=== PATIENT | male | born 1970 | race Caucasian/White ===

== ENCOUNTER → 2023-11-19 14:15 | Outpatient (REF) | payer OTHER, SELFPAY | LOC: HWRAD 14:15 | PROVIDERS: ATTENDING PHYSICIAN Specialist; FAMILY PHYSICIAN Physician Assistant | DX: I10 Essential (primary) hypertension (principal); N20.0 Calculus of kidney; N18.32 Chronic kidney disease, stage 3b; N26.1 Atrophy of kidney (terminal) | CPT/HCPCS: 74176 ==

== ENCOUNTER → 2024-01-04 11:36 | Outpatient (REF) | payer OTHER, SELFPAY | LOC: HWRAD 11:36 | PROVIDERS: ATTENDING PHYSICIAN Internal Medicine; FAMILY PHYSICIAN Physician Assistant | DX: R10.31 Right lower quadrant pain (principal); R14.0 Abdominal distension (gaseous) | CPT/HCPCS: 74019 ==

== ENCOUNTER 2024-02-07 08:50 | Emergency (ER) | payer OTHER, SELFPAY ==
[2024-02-07 08:57] VITALS: BP 129/85
--- NOTE | 2024-02-07 09:22 | ED.SKININJ ---
HPI-Injury
<Jonathan Helms PA-C - Last Filed: 02/07/24 09:25>
General
Chief Complaint: Skin Surface Trauma
Source: patient
Exam Limitations: none
Time Seen by Provider: 02/07/24 09:02
History of Present Illness-Injury
Initial Injury comments:
53-year-old [id number] male with laceration to left hand he sustained today. Was trying to cut a zip tie with a knife and slipped and cut himself in the hand. The cut is between the webspace between the thumb and index finger. He was
having difficulty getting it to stop bleeding at home. Last tetanus vaccine updated recently. No numbness or tingling or loss of function
Past History
<Jonathan Helms PA-C - Last Filed: 02/07/24 09:25>
Past History
ED Past Medical History: HTN and Other (CKD, kidney stones)
ED Past Surgical History: Urological
Social History
Tobacco: Non-smoker
Phy Exam
<Jonathan Helms PA-C - Last Filed: 02/07/24 09:25>
Physical Exam
Physical Exam:
General: Well-appearing male no acute respiratory distress
Skin: 2 cm laceration webspace between left thumb and index finger. Possible muscular involvement but no active bleeding. No tendon involvement.
Musculoskeletal exam: Full range of motion all fingers and thumb left hand
Neurologic exam: Good sensation left thumb and index finger
Vascular: Brisk cap refill all fingers
Course
<Jonathan Helms PA-C - Last Filed: 02/07/24 09:25>
Vital Signs
Initial and Last Documented VS:
Initial Vital Signs
Temp Pulse Resp BP Pulse Ox
98.1 F 82 16 129/85 97
02/07/24 08:57 02/07/24 08:57 02/07/24 08:57 02/07/24 08:57 02/07/24 08:57
Last Documented Vital Signs
Temp Pulse Resp BP Pulse Ox
98.1 F 82 16 129/85 97
02/07/24 08:57 02/07/24 08:57 02/07/24 08:57 02/07/24 08:57 02/07/24 08:57
<Gonzalo Abad DO - Last Filed: 02/07/24 10:22>
Vital Signs
Initial and Last Documented VS:
Initial Vital Signs
Temp Pulse Resp BP Pulse Ox
98.1 F 82 16 129/85 97
02/07/24 08:57 02/07/24 08:57 02/07/24 08:57 02/07/24 08:57 02/07/24 08:57
Last Documented Vital Signs
Temp Pulse Resp BP Pulse Ox
98.1 F 82 16 129/85 97
02/07/24 08:57 02/07/24 08:57 02/07/24 08:57 02/07/24 08:57 02/07/24 08:57
<Jonathan Helms PA-C - Last Filed: 02/07/24 09:25>
MDM/Problems Addressed
Differential Diagnosis Includes:
Laceration left hand. This was copiously irrigated with saline solution. No evidence of neurovascular or tendon involvement. Once irrigated, the wound was anesthetized in a local fashion using 1% lidocaine with epinephrine. 4-0 Prolene sutures
were used in a simple erupted fashion. 4 sutures were required to provide wound edge approximation and hemostasis. A dressing was applied. Stable for
<Jonathan Helms PA-C - Last Filed: 02/07/24 09:25>
*Critical Care Note
Total Time (30-74mins, 75-104mins- exclusive of procedures): Not Applicable
ED Attending Note
<KAYLA Cash Filed: 02/07/24 09:25>
-
Portions of this chart may have been created with voice recognition software.� Occasional wrong word or��sound alike� substitutions may have occurred due to the inherent limitations of voice recognition software.
<Gonzalo Abad DO - Last Filed: 02/07/24 10:22>
ED Attending Note
Patient seen and examined by attending physician: Yes
I performed the substantive portion of visit, reviewed & personally made and approve the management plan that is documented in note by myself or TALA.: Yes
ED Attending Note:
I have seen and evaluated the patient with a [id number] encounter. I have spoken to the advance practicer provider and involved in the medical history, the physical exam, medical decision making.
Evaluation and management service: agree unless noted differently below.
Results interpretation: agree unless noted differently below.
Focused HPI: 53-year-old male presenting with self sustained cut to his left hand. Patient was brought back immediately when triage indicated that the cut was hemorrhaging. Dressing applied
Physical exam: The hemorrhaging appeared to have resolved. There is a small 2 cm laceration to the webbing's left hand along the thumb and index finger. Patient in no acute distress
Medical Decision Making: Stitches placed. No active bleeding.
Discharge Plan
Departure
Patient Disposition: Home (Routine Discharge)
Date of Disposition: 02/07/24
Time of Disposition: :24
Patient with high blood pressure during this ER visit?: No
Discharge Problem:
Laceration
Instructions: Laceration Repair With Stitches (DC)
Prescriptions:
No Action
amlodipine 5 MG tablet
5 mg PO HS
allopurinol 300 MG tablet
150 mg PO HS
finasteride [Propecia] 1 MG tablet
1 mg PO HS
alfuzosin 10 MG tablet extended release 24 hr
10 mg PO HS
tramadol 50 MG tablet
50 mg PO Q6HPRN PRN (Reason: severe pain) Qty: 15 0RF
Activity Restrictions/Additional Instructions:
Keep clean. Have sutures removed in 10 to 14 days. Return here if needed otherwise
Interventions
Interventions:
*Risk Screen - Suicide Last Done: 02/07/24 09:37
*General Assessment Last Done: 02/07/24 09:35
*Neglect/Abuse Screening Last Done: 02/07/24 09:37
ED- Fall Risk Assessment Last Done: 02/07/24 09:37
*ED COVID-19 Vaccine History Last Done: 02/07/24 09:35
*Nursing Disposition Last Done: 02/07/24 09:37
ED-Skin Assessment Last Done: 02/07/24 09:18
Discharge Date and Time
Discharge Date/Time: 02/07/24 09:37
Print Language: MACEDONIAN
== END 2024-02-07 09:37 | disposition home or self-care (01) ==
LOC: EMR 08:50
PROVIDERS: EMERGENCY PHYSICIAN Student in an Organized Health Care Education/Training Program; FAMILY PHYSICIAN Physician Assistant
DX: S61.412A Laceration without foreign body of left hand, initial encounter (principal); W26.0XXA Contact with knife, initial encounter; I12.9 Hypertensive chronic kidney disease with stage 1 through stage 4 chronic kidney disease, or unspecified chronic kidney disease; N18.9 Chronic kidney disease, unspecified; Z87.442 Personal history of urinary calculi
CPT/HCPCS: 99282; 12001

== ENCOUNTER → 2024-05-03 11:52 | Outpatient (REF) | payer OTHER, SELFPAY | LOC: HWRAD 11:52 | PROVIDERS: ATTENDING PHYSICIAN Physician Assistant | DX: M54.6 Pain in thoracic spine (principal) | CPT/HCPCS: 72072 ==

== ENCOUNTER → 2024-05-15 12:31 | Outpatient (REF) | payer OTHER, SELFPAY | LOC: HWRAD 12:31 | PROVIDERS: ATTENDING PHYSICIAN Physician Assistant | DX: R05.8 Other specified cough (principal) | CPT/HCPCS: 71046 ==

== ENCOUNTER 2024-05-30 06:23 | Day surgery (SDC) | payer OTHER, SELFPAY | END 2024-05-30 14:56 | disposition home or self-care (01) | LOC: GI 06:23 | PROVIDERS: ATTENDING PHYSICIAN Internal Medicine | DX: Z12.11 Encounter for screening for malignant neoplasm of colon (principal); K64.8 Other hemorrhoids; K63.89 Other specified diseases of intestine; K63.5 Polyp of colon | CPT/HCPCS: 45385; 88305 ==

== ENCOUNTER → 2024-07-17 11:45 | Outpatient (REF) | payer OTHER, SELFPAY | LOC: HWRAD 11:45 | PROVIDERS: ATTENDING PHYSICIAN Internal Medicine Hematology & Oncology; FAMILY PHYSICIAN Physician Assistant | DX: Z87.891 Personal history of nicotine dependence (principal) | CPT/HCPCS: 71271 ==

== ENCOUNTER → 2024-08-18 10:31 | Outpatient (REF) | payer OTHER, SELFPAY | LOC: HWRAD 10:31 | PROVIDERS: ATTENDING PHYSICIAN Internal Medicine Rheumatology; FAMILY PHYSICIAN Physician Assistant; REFERRING PHYSICIAN Physical Medicine & Rehabilitation | DX: M19.90 Unspecified osteoarthritis, unspecified site (principal); M47.812 Spondylosis without myelopathy or radiculopathy, cervical region; M54.6 Pain in thoracic spine | CPT/HCPCS: 72072 ==